=== PATIENT | female | born 1985 | race American Indian/Alaskan Native ===

== ENCOUNTER 2021-10-08 21:32 | Emergency (ER) | payer OTHER ==
[2021-10-08 21:38] VITALS: BP 129/82
--- NOTE | 2021-10-08 22:11 | XRay Report ---
RIGHT HAND 3 VIEW(S) INDICATION / CLINICAL INFORMATION: hand injury COMPARISON: None available. FINDINGS: BONES / JOINT(S): Acute mildly displaced boxer type fracture of little finger metacarpal neck. No sig nificant arthritis. SOFT TISSUES: No significant abnormality. ADDITIONAL FINDINGS: None. IMPRESSION: 1. Boxer type fracture little finger metacarpal Signer Name: Garo Pool MD Signed: 10/08/2021 10:07 PM Workstation Name: [id number]
[2021-10-08] MEDS ORDERED: HYDROcodone/ACETAMINOPHEN 5-325 MG TAB PO ONE (22:14)
[2021-10-08] MEDS ORDERED: ONDANSETRON 4 MG ODT TAB PO ONE (22:14)
[2021-10-08] MEDS ORDERED: IBUPROFEN 600 MG TAB PO ONE (22:14)
--- NOTE | 2021-10-08 23:12 | Emergency Department Report ---
ED Upper Extremity Inj HPI - General Chief Complaint: Extremity Injury, Upper Stated Complaint: BROKEN KNUCKLE FINER Source: patient Mode of arrival: Ambulatory Limitations: No Limitations - History of Present Illness Initial Comments: Patient is a 36-year-old -[place] female with no past medical history presents to the ED with complaint of acute onset persistent lateral right hand pain and swelling after she accidentally shut the door on the right hand about 6 hours ago. Patient states that she has not been able to bear weight on the right hand because of worsening pain and swelling. Patient denies physical assault, fall, nausea and vomiting, numbness and tingling or weakness of right hand or right arm, neck pain or headache, chest pain or shortness of breath. MD Complaint: Injury to:: right, hand (Right hand pain with swelling) -: Sudden (4), hour(s) (6) Other Extremity Injury: Hand: Right (Right hand pain with swelling) Other Injuries: none Handedness: right Place: home Severity scale (0 -10): 8 Worsens With: movement of extremity Context: direct blow (Right hand hit by the door hinge), crush, injury Associated Symptoms: denies other symptoms. denies: weakness, numbness, neck pain, suspects foreign body, nausea/vomiting, heard/felt popping sensat - Related Data Previous Rx's Medication Instructions Recorded Last Taken Type Baclofen 20 mg PO Q12H PRN #20 tab 10/08/21 Unknown Rx HYDROcodone/APAP 7.5-325 [[place] 1 each PO Q6HR PRN #12 tablet 10/08/21 Unknown Rx 7.5/325] Ibuprofen [Motrin] 800 mg PO Q8HR PRN #30 tablet 10/08/21 Unknown Rx Allergies Allergy/AdvReac Type Severity Reaction Status Date / Time No Known Allergies Allergy Unverified 10/08/21 21:36 ED Review of Systems ROS: Stated complaint: BROKEN KNUCKLE FINER Other details as noted in HPI Constitutional: denies: chills, fever Eyes: denies: eye pain, eye discharge, vision change ENT: denies: ear pain, throat pain Respiratory: denies: cough, shortness of breath, wheezing Cardiovascular: denies: chest pain, palpitations Endocrine: no symptoms reported Gastrointestinal: denies: abdominal pain, nausea, diarrhea Genitourinary: denies: urgency, dysuria, discharge Musculoskeletal: joint swelling (Lateral right hand pain and swelling), arthralgia (Lateral right hand pain and swelling). denies: back pain Skin: denies: rash, lesions Neurological: denies: headache, weakness, paresthesias Psychiatric: denies: anxiety, depression Hematological/Lymphatic: denies: easy bleeding, easy bruising ED Past Medical Hx - Medications Home Medications: Home Medications Medication Instructions Recorded Confirmed Last Taken Type Baclofen 20 mg PO Q12H PRN #20 tab 10/08/21 Unknown Rx HYDROcodone/APAP 7.5-325 [[place] 1 each PO Q6HR PRN #12 tablet 10/08/21 Unknown Rx 7.5/325] Ibuprofen [Motrin] 800 mg PO Q8HR PRN #30 tablet 10/08/21 Unknown Rx ED Physical Exam - General Limitations: No Limitations General appearance: alert, in no apparent distress - Head Head exam: Present: atraumatic, normocephalic, normal inspection - Eye Eye exam: Present: normal appearance, PERRL, EOMI Pupils: Present: normal accommodation - ENT ENT exam: Present: normal exam, normal orophraynx, mucous membranes moist, TM's normal bilaterally, normal external ear exam - Neck Neck exam: Present: normal inspection, full ROM. Absent: tenderness - Respiratory Respiratory exam: Present: normal lung sounds bilaterally. Absent: respiratory distress, wheezes, rales, rhonchi, chest wall tenderness, accessory muscle use, decreased breath sounds, prolonged expiratory - Cardiovascular Cardiovascular Exam: Present: regular rate, normal rhythm, normal heart sounds. Absent: systolic murmur, diastolic murmur, rubs, gallop - GI/Abdominal GI/Abdominal exam: Present: soft, normal bowel sounds. Absent: distended, tende rness, guarding, rebound, hyperactive bowel sounds, hypoactive bowel sounds, organomegaly, mass - Extremities Exam Extremities exam: Present: normal inspection, tenderness (Palpable lateral right hand tenderness with mild swelling and limited range of motion due to pain), normal capillary refill, joint swelling. Absent: full ROM (Limited range of motion of lateral right hand due to pain), pedal edema, calf tenderness - Back Exam Back exam: Present: normal inspection, full ROM. Absent: tenderness, CVA tenderness (R), CVA tenderness (L), muscle spasm, paraspinal tenderness, vertebral tenderness - Neurological Exam Neurological exam: Present: alert, oriented X3, CN II-XII intact, normal gait, reflexes normal - Psychiatric Psychiatric exam: Present: normal affect, normal mood - Skin Skin exam: Present: warm, dry, intact, normal color. Absent: rash ED Course Vital Signs 10/08/21 21:37 Temperature 98.3 F Pulse Rate 72 Respiratory 16 Rate Blood Pressure 129/82 O2 Sat by Pulse 99 Oximetry ED Medical Decision Making - Radiology Data Radiology results: report reviewed, image reviewed [facility] [address] [place] [address] XRay Report Signed Patient: BERNIE PIMENTEL MR#: [id number] : 1985 Acct:[id number] Age/Sex: 36 / F ADM Date: 10/08/21 Loc: ED Attending Dr: Ordering Physician: AKILAH MISTRY MD Date of Service: 10/08/21 Procedure(s): XR hand 3+V RT Accession Number(s): [id number] cc: AKILAH MISTRY MD Fluoro Time In Minutes: RIGHT HAND 3 VIEW(S) INDICATION / CLINICAL INFORMATION: hand injury COMPARISON: None available. FINDINGS: BONES / JOINT(S): Acute mildly displaced boxer type fracture of little finger metacarpal neck. No significant arthritis. SOFT TISSUES: No significant abnormality. ADDITIONAL FINDINGS: None. IMPRESSION: 1. Boxer type fracture little finger metacarpal Signer Name: Garo Pool MD Signed: 10/08/2021 10:07 PM Workstation Name: [id number] Transcribed By: TL Dictated By: Garo Pool MD Electronically Authenticated By: Garo Pool MD Signed Date/Time: 10/08/212206 DD/ 05 TD/TT: - Medical Decision Making This is a 36-year-old -[place] female with no past medical history presents to the ED with complaint of acute onset persistent lateral right hand pain and swelling after she accidentally shut the door on the right hand about 6 hours ago. Patient states that she has not been able to bear weight on the right hand because of worsening pain and swelling. In the ED, patient is alert and oriented x3 and is not in any distress. Patient however appears to be in significant pain. Patient treated for pain in the ED and right hand x-ray showed acute mildly displaced boxer type fracture of little finger metacarpal neck. No significant arthritis. The right hand was splinted with ulnar gutter splint and on reevaluation, patient is neurovascularly intact. Patient was therefore discharged home on pain medications and given a referral to the orthopedic surgeon on-call Dr. Burch for evaluation. Patient was advised to contact Dr. Burch's office first thing in the morning on Sunday, October 10, 2021 to schedule a follow-up appointment. Patient was advised return to the ED immediately if symptoms get worse. - Differential Diagnosis Boxer fracture; hand contusion; hand sprain; metacarpal fracture Critical care attestation.: If time is entered above; I have spent that time in minutes in the direct care of this critically ill patient, excluding procedure time. ED Disposition Clinical Impression: Displaced fracture of neck of fifth metacarpal bone of right hand Qualifiers: Encounter type: initial encounter Fracture type: closed Qualified Code(s): S62.336A - Displaced fracture of neck of fifth metacarpal bone, right hand, initial encounter for closed fracture Contusion of right hand Qualifiers: Encounter type: initial encounter Qualified Code(s): S60.221A - Contusion of right hand, initial encounter Disposition: 01 HOME / SELF CARE / HOMELESS Is pt being admited?: No Does the pt Need Aspirin: No Condition: Stable Instructions: Cast or Splint Care, Adult, [id number], Boxer's Fracture, Hand Contusion, [id number], Metacarpal Fracture, [id number] Additional Instructions: The right hand x-ray showed boxer fracture of the fifth metacarpal bone. Therefore take pain medication as needed, drink plenty of fluids and follow-up with the orthopedic surgeon on-call Dr. Burch for reevaluation. Contact Dr. Burch's office first thing in the morning on Sunday October 10, 2021 to schedule a follow-up appointment. Return to the ED immediately if symptoms get worse. Prescriptions: Baclofen 20 mg PO Q12H PRN #20 tab PRN Reason: Muscle Spasm Ibuprofen [Motrin] 800 mg PO Q8HR PRN #30 tablet PRN Reason: Pain , Severe (7-10) HYDROcodone/APAP 7.5-325 [[place] 7.5/325] 1 each PO Q6HR PRN #12 tablet PRN Reason: Pain Referrals: DEE BURCH MD [Staff Physician] - 3-5 Days Time of Disposition: 23:10 Print Language: CENTRAL AFRICAN
== END 2021-10-09 05:59 | disposition home or self-care (01) ==
LOC: ED 21:32
DX: S60.221A Contusion of right hand, initial encounter (principal); W19.XXXA Unspecified fall, initial encounter; Y93.89 Activity, other specified; Y92.89 Other specified places as the place of occurrence of the external cause; Y99.8 Other external cause status
CPT/HCPCS: 99283; J3490; Q0162

== ENCOUNTER 2021-10-18 09:44 | Outpatient (CLI) | payer OTHER ==
--- NOTE | 2021-10-18 12:51 | XRay Report ---
Right hand-3 views INDICATION: PAIN IN RIGHT HAND. COMPARISON: Right hand series from 10/08/2021 IMPRESSION: Slight progressive interval healing of the comminuted fracture at the neck of the little finger metacarpal with unchanged mild volar angulation. No significant DJD. Soft tissues are unrema rkable. Signer Name: Adan Fatima MD Signed: 10/18/2021 12:46 PM Workstation Name: [id number]
== END 2021-10-18 09:45 | disposition home or self-care (01) ==
LOC: XRAY 09:44
PROVIDERS: ATTEND Orthopaedic Surgery
DX: S62.336A Displaced fracture of neck of fifth metacarpal bone, right hand, initial encounter for closed fracture (principal); X58.XXXA Exposure to other specified factors, initial encounter; Y93.89 Activity, other specified; Y92.89 Other specified places as the place of occurrence of the external cause; Y99.8 Other external cause status

== ENCOUNTER 2021-11-17 14:27 | Outpatient (CLI) | payer OTHER ==
--- NOTE | 2021-11-17 16:25 | XRay Report ---
RIGHT HAND 3 VIEWS INDICATION / CLINICAL INFORMATION: S62.366D. COMPARISON: 10/08/2021 FINDINGS: Overlying casting material limits evaluation of bony detail. There is continued healing and callus fo rmation of the fifth metacarpal fracture with unchanged mild volar angulation. Signer Name: Martinez Aburto MD Signed: 11/17/2021 4:06 PM Workstation Name: [id number]
== END 2021-11-17 14:28 | disposition home or self-care (01) ==
LOC: XRAY 14:27
PROVIDERS: ATTEND Orthopaedic Surgery
DX: S62.366D Nondisplaced fracture of neck of fifth metacarpal bone, right hand, subsequent encounter for fracture with routine healing (principal); X58.XXXD Exposure to other specified factors, subsequent encounter